=== PATIENT | female | born 1950 | race Caucasian/White ===

== ENCOUNTER 2017-06-24 13:31 | Outpatient (CLI) | payer MEDICARE | END 2017-06-24 13:32 | disposition home or self-care (01) | LOC: BICMAMMO 13:31 | PROVIDERS: ATTEND Internal Medicine | DX: Z12.31 Encounter for screening mammogram for malignant neoplasm of breast (principal); Z80.3 Family history of malignant neoplasm of breast; Z85.038 Personal history of other malignant neoplasm of large intestine | CPT/HCPCS: 77063; 77067 ==

== ENCOUNTER 2018-04-20 09:50 | Outpatient (CLI) | payer MEDICARE ==
--- NOTE | 2018-04-20 12:29 | ULT ---
RIGHT BREAST ULTRASOUND: HISTORY: A 68-year-old female with a palpable region in the 10 o'clock position of the right breast. This is at the area where she previously had a breast biopsy. COMPARISON: Mammograms from 04/20/2018, 06/24/2017, and 03/16/2015. TECHNIQUE: Multiplanar pierre-scale and color Doppler images were obtained in an ultrasound at the 10 o'clock posi tion of the right breast. FINDINGS: There is architectural distortion in this portion of the breasts secondary to the patient's prior bio psy. No suspicious mass is seen. An incidentally seen small hypoechoic, well circumscribed lesion, measuring 5 mm in size, may represent a small cyst. This is smaller than the area of palpable concer n, per the patient, and the patient is likely not feeling this abnormality. IMPRESSION: BI-RADS category 2-Benign findings. Annual screening mammography is recommended. POS: JOSEPH
--- NOTE | 2018-04-20 13:42 | MMO ---
MAMMO Bilat Diag [facility]. CLINICAL HISTORY: Patient is 68 years old and is seen for diagnostic exam. The patient has the following family history of breast cancer: mother, at age 60. The patient has a history of colon cancer in April,. The patient has a history of right Excisional Biopsy more than 10 years ago - benign. VIEWS: The views performed were: bilateral craniocaudal with tomosynthesis; bilateral mediolateral oblique with tomosynthesis; and bilateral mediolateral. FILMS COMPARED: The present examination has been compared to prior imaging studies performed at [facility] on 12/18/2012, 01/31/2014, 03/16/2015, 04/17/2016, 06/24/2017 and 04/20/2018, and at [facility] on 08/05/1997, 06/13/2000, 04/03/2010, 04/11/2010 and 04/29/2012. MAMMOGRAM FINDINGS: There are scattered fibroglandular densities. There are benign appearing calcifications seen in both breasts. There are no suspicious masses, calcifications or areas of architectural distortion. IMPRESSION: CALCIFICATIONS IN BOTH BREASTS ARE BENIGN. A ROUTINE FOLLOW-UP MAMMOGRAM IN 1 YEAR IS RECOMMENDED. THE RESULTS OF THIS EXAM WERE SENT TO THE PATIENT. ACR BI-RADS Category 2 - Benign finding MAMMOGRAPHY NOTE: 1. A negative mammogram report should not delay a biopsy if a dominant of clinically suspicious mass is present. 2. Approximately 10% to 15% of breast cancers are not detected by mammography. 3. Adenosis and dense breasts may obscure an underlying neoplasm.
== END 2018-04-20 09:51 | disposition home or self-care (01) ==
LOC: BICMAMMO 09:50
PROVIDERS: ATTEND Internal Medicine
DX: N63.10 Unspecified lump in the right breast, unspecified quadrant (principal); R92.1 Mammographic calcification found on diagnostic imaging of breast; Z85.038 Personal history of other malignant neoplasm of large intestine; Z80.3 Family history of malignant neoplasm of breast
CPT/HCPCS: 76642; 77066; G0279

== ENCOUNTER 2018-08-18 10:18 | Outpatient (CLI) | payer MEDICARE ==
[2018-08-18] MEDS ORDERED: Iopamidol 370 76% 100 ML VIAL ONE (10:36)
[2018-08-18] MEDS ORDERED: Iopamidol 370 76% 50 ML VIAL FS ONE (10:36)
--- NOTE | 2018-08-18 12:46 | CT ---
CT OF THE ABDOMEN AND PELVIS WITH IV CONTRAST INDICATION: History of colon cancer and blood in the stools. The patient is also a right lower quadra nt abdominal pain. COMPARISON: CT abdomen and pelvis dated 07/03/2016 and CTA of the thorax dated November 30, 2013. FINDINGS: ABDOMEN: Lung bases: There is a stable region of nodular scarring involving the lateral right middle lobe alea uring 7 mm. Liver: No focal lesion. Gallbladder: Normal appearing. Pancreas: Normal. Adrenal glands: Normal. Spleen: Normal. Kidneys: Normal. Retroperitoneum of the upper abdomen: There are mild vascular calcification involving the abdominal a [place]. No lymphadenopathy is evident. Pelvis: Small and large bowel: There is postsurgical change of a partial right hemicolectomy. There are scatt ered colonic diverticula without evidence of active diverticulitis. There is a mild amount of retained stool within the colon. Small bowel is of normal caliber. No drainable fluid collection is e vident. Bladder: Normal. Rectal and perirectal soft tissues:Normal. Reproductive structures: Stable fibroid uterus. Free fluid in pelvis: No free fluid is evident. Lymphadenopathy pelvis: No lymphadenopathy is evident. Osseous structures: No acute fracture or subluxation demonstrated. There is scattered degenerative an d osteoarthritic change present. There is postsurgical change involving the lower lumbar spine and right posterior pelvis. No suspicious osteolytic or osteoblastic lesion is identified. IMPRESSION: 1. No acute abnormality.
== END 2018-08-18 10:19 | disposition home or self-care (01) ==
LOC: CT 10:18
PROVIDERS: ATTEND Internal Medicine Gastroenterology
DX: R10.31 Right lower quadrant pain (principal); R19.5 Other fecal abnormalities
CPT/HCPCS: 36415; 74177; 80048; 82728; 85025; Q9967

== ENCOUNTER 2019-07-14 09:05 | Outpatient (CLI) | payer MEDICARE ==
--- NOTE | 2019-07-14 10:32 | ULT ---
EXAM: US Breast Limited Lt PROVIDED CLINICAL HISTORY: Left breast palpable abnormality COMPARISON: Diagnostic mammogram 07/14/2019 Diagnostic mammogram 04/20/2018 FINDINGS: Limited sonographic interrogation was performed of the left breast in the region of palpable concern at approximately 10:30. Mammographically, this region demonstrates adjacent foci of fat necrosis, one of which appears more dense than on prior. Sonographically, there is a circumscribed anechoic foc us measuring about 9 mm compatible with the stable focus of fat necrosis. There is a circumscribed focus of central anechogenicity and circumferential isoechogenicity measuring about 7 mm compatible w ith the fat necrosis that demonstrates interval increase in density suggesting hemorrhagic or proteinaceous debris. IMPRESSION: Hemorrhagic or proteinaceous debris within area of fat necrosis. Correlate clinically with signs of i nflammation or infection. This could be aspirated as clinically indicated. BI-RADS 2 -- benign findings
--- NOTE | 2019-07-14 10:34 | MMO ---
Bilateral MAMMO Bilat Diag [facility]. CLINICAL HISTORY: Patient is 69 years old and is seen for screening. The patient has the following family history of breast cancer: mother, at age 60. The patient has a history of colon cancer in April,. The patient has a history of right Excisional Biopsy more than 10 years ago - benign. VIEWS: The views performed were: bilateral craniocaudal with tomosynthesis and bilateral mediolateral oblique with tomosynthesis. FILMS COMPARED: The present examination has been compared to prior imaging studies performed at [facility] on 06/24/2017, 04/20/2018 and 07/14/2019. This study has been interpreted with the assistance of computer-aided detection. MAMMOGRAM FINDINGS: There are scattered fibroglandular densities. Finding 1: Fat necrosis is again demonstrated in the region of palpable concern on the left. The smaller of the two foci of adjacent fat necrosis appears less lucent than on prior. Sonographic findings suggest debris within this area. Finding 2: There are stable benign appearing calcifications seen in both breasts. There are no suspicious masses, suspicious calcifications, or new areas of architectural distortion. IMPRESSION: FINDING 1: FINDING IN THE LEFT BREAST IS BENIGN. FAT NECROSIS IS AGAIN DEMONSTRATED IN THE REGION OF PALPABLE CONCERN, WITH CHANGE IN APPEARANCE POSSIBLY ON THE BASIS OF DEBRIS RELATED TO INFECTION/INFLAMMATION. CORRELATE CLINICALLY. A ROUTINE FOLLOW-UP MAMMOGRAM IN 1 YEAR IS RECOMMENDED. THE RESULTS OF THIS EXAM WERE SENT TO THE PATIENT. ACR BI-RADS Category 2 - Benign finding MAMMOGRAPHY NOTE: 1. A negative mammogram report should not delay a biopsy if a dominant of clinically suspicious mass is present. 2. Approximately 10% to 15% of breast cancers are not detected by mammography. 3. Adenosis and dense breasts may obscure an underlying neoplasm. Reported by: DONOVAN FERRARO MD Electonically Signed: [id number]
== END 2019-07-14 09:06 | disposition home or self-care (01) ==
LOC: BICMAMMO 09:05
PROVIDERS: ATTEND Internal Medicine
DX: N63.20 Unspecified lump in the left breast, unspecified quadrant (principal)
CPT/HCPCS: 76642; 77066; G0279; 77063; 77067

== ENCOUNTER 2020-05-25 17:06 | Outpatient (CLI) | payer MEDICARE ==
[2020-05-25 15:57] LABS: #Eosinphils 0.1 10x3/uL (0.0-0.5); #Monocytes 0.3 10x3/uL (0.0-1.1); #Neutrophils 5.1 10x3/uL (1.5-8.4); %Basophils 0.6 % (0.0-2.0); %Lymphocytes 21.3 % (18.0-47.0); %Monocytes 4.1 % (0.0-10.0); %Neutrophils 71.7 % (40.0-75.0); Hemoglobin 12.7 g/dL (12.0-15.5); Mean Corpuscular HGB CONC 33.6 g/dL (32.0-36.0); Mean Corpuscular Hemoglobin 31.4 pg (27.0-33.0); Mean Corpuscular Volume 93.3 fl (81.6-98.3); Mean Platelet Volume 8.9 fl (7.4-10.4); Platelet Count 344 10x3/uL (150-450); RBC Distribution Width 12.8 % (11.5-14.5); Red Blood Cell (RBC) Count 4.05 10x6/uL (3.90-5.03); White Blood Cell (WBC) Count 7.1 10x3/uL (3.5-10.5)
[2020-05-25 16:00] LABS: INR-International Normal Ratio 0.9; PTT 28.2 sec (22.0-33.0); Prothrombin Time 10.4 sec (9.5-12.1)
[2020-05-25 17:11] LABS: Anion Gap 15 mmol/L (10-20); BUN (Urea Nitrogen) 8 mg/dL (9.8-20.1); Calc. Creatinine Clearance 0 mL/min (70-130); Calcium 9.9 mg/dL (7.8-10.44); Carbon Dioxide 27 mmol/L (23-31); Chloride 100 mmol/L (98-107); Glucose 81 mg/dL (80-115); Potassium 4.1 mmol/L (3.5-5.1); Sodium 138 mmol/L (136-145)
[2020-05-26 01:53] LABS: SARS-CoV-2 PCR by NAA Not Detected (NotDetected)
== END 2020-05-25 17:07 | disposition home or self-care (01) ==
LOC: LABBT 17:06
PROVIDERS: ATTEND Internal Medicine Cardiovascular Disease
DX: Z01.812 Encounter for preprocedural laboratory examination (principal); I48.91 Unspecified atrial fibrillation; Z20.822 Contact with and (suspected) exposure to COVID-19
CPT/HCPCS: 80048; 85025; 85610; 85730; U0003; U0005; 87635

== ENCOUNTER 2020-05-29 07:20 | Day surgery (SDC) | payer MEDICARE ==
[2020-05-26 11:47] VITALS: BMI 27.4
[2020-05-29] MEDS ORDERED: PROPOFOL 20 ML ONE (08:42)
[2020-05-29] MEDS ORDERED: Iopamidol 370 76% 100 ML VIAL ONE (13:04)
== END 2020-05-29 12:30 | disposition home or self-care (01) ==
LOC: CCL 07:20
PROVIDERS: ATTEND Internal Medicine Cardiovascular Disease
PROC: B24BZZ4 Ultrasonography of Heart with Aorta, Transesophageal (ICD-10-PCS; principal; 2020-05-29)
DX: T82.538A Leakage of other cardiac and vascular devices and implants, initial encounter (principal); I48.11 Longstanding persistent atrial fibrillation; I70.0 Atherosclerosis of aorta; I08.3 Combined rheumatic disorders of mitral, aortic and tricuspid valves; I11.0 Hypertensive heart disease with heart failure; I50.9 Heart failure, unspecified; K21.9 Gastro-esophageal reflux disease without esophagitis; I25.10 Atherosclerotic heart disease of native coronary artery without angina pectoris; E78.2 Mixed hyperlipidemia; Z79.1 Long term (current) use of non-steroidal anti-inflammatories (NSAID); Z79.82 Long term (current) use of aspirin; Z79.899 Other long term (current) drug therapy
CPT/HCPCS: 71275; 93312; J2704; Q9967

== ENCOUNTER 2020-05-31 09:28 | Outpatient (CLI) | payer MEDICARE ==
[2020-05-31 12:00] LABS: INR-International Normal Ratio 0.9; PTT 28.3 sec (22.0-33.0); Prothrombin Time 10.2 sec (9.5-12.1)
[2020-05-31 12:09] LABS: Anion Gap 17 mmol/L (10-20); BUN (Urea Nitrogen) 12 mg/dL (9.8-20.1); Calc. Creatinine Clearance 0 mL/min (70-130); Calcium 10.1 mg/dL (7.8-10.44); Carbon Dioxide 26 mmol/L (23-31); Chloride 102 mmol/L (98-107); Glucose 122 mg/dL (80-115); Potassium 4.2 mmol/L (3.5-5.1); Sodium 141 mmol/L (136-145)
[2020-05-31 22:36] LABS: SARS-CoV-2 PCR by NAA Not Detected (NotDetected)
== END 2020-05-31 09:29 | disposition home or self-care (01) ==
LOC: LABBT 09:28
PROVIDERS: ATTEND Internal Medicine Cardiovascular Disease
DX: Z01.812 Encounter for preprocedural laboratory examination (principal); I48.91 Unspecified atrial fibrillation; Z20.822 Contact with and (suspected) exposure to COVID-19
CPT/HCPCS: 80048; 85610; 85730; U0003; U0005; 87635

== ENCOUNTER 2020-06-02 06:04 | Day surgery (SDC) | payer MEDICARE ==
[2020-06-01 09:55] VITALS: BMI 27.4
[2020-06-02] MEDS ORDERED: PROPOFOL 20 ML ONE (07:19)
[2020-06-02] MEDS ORDERED: Lidocaine 1% (PF) 30 ML VIAL ONE (07:21)
== END 2020-06-02 08:56 | disposition home or self-care (01) ==
LOC: SDC 06:04
PROVIDERS: ATTEND Internal Medicine Cardiovascular Disease
PROC: B24BZZ4 Ultrasonography of Heart with Aorta, Transesophageal (ICD-10-PCS; principal; 2020-06-02)
DX: I48.0 Paroxysmal atrial fibrillation (principal); I08.1 Rheumatic disorders of both mitral and tricuspid valves; I70.0 Atherosclerosis of aorta; I25.10 Atherosclerotic heart disease of native coronary artery without angina pectoris; E78.2 Mixed hyperlipidemia; I11.0 Hypertensive heart disease with heart failure; I50.9 Heart failure, unspecified; K21.9 Gastro-esophageal reflux disease without esophagitis; G89.29 Other chronic pain; M54.9 Dorsalgia, unspecified; Z79.1 Long term (current) use of non-steroidal anti-inflammatories (NSAID); Z79.82 Long term (current) use of aspirin; Z79.899 Other long term (current) drug therapy; Z95.818 Presence of other cardiac implants and grafts
CPT/HCPCS: 92960; 93005; 93010; J2001; J2704

== ENCOUNTER 2020-07-27 09:17 | Outpatient (CLI) | payer MEDICARE | END 2020-07-27 09:18 | disposition home or self-care (01) | LOC: BICMAMMO 09:17 | PROVIDERS: ATTEND Specialist | DX: Z12.31 Encounter for screening mammogram for malignant neoplasm of breast (principal); Z85.038 Personal history of other malignant neoplasm of large intestine; Z80.3 Family history of malignant neoplasm of breast; Z91.89 Other specified personal risk factors, not elsewhere classified | CPT/HCPCS: 77063; 77067 ==